=== PATIENT | female | born 1980 | race Caucasian/White ===

== ENCOUNTER 2020-11-25 13:54 | Emergency (ER) | payer OTHER ==
[~2020-11-25] VITALS: Ht 154.9 cm; Wt 72.6 kg
[2020-11-25 14:11] VITALS: BP 79/48
[2020-11-25] MEDS ORDERED: NACL 0.9% 1,000 ML IV SCH (14:25)
[2020-11-25] MEDS ORDERED: ONDANSETRON 4 MG/2 ML VIAL IVP ONE (14:25)
[2020-11-25 14:47] LABS: BASOPHILS # (AUTO) 0.1 K/uL (0.00-0.22); EOSINOPHILS # (AUTO) 0.1 K/uL (0-0.4); HEMATOCRIT 40.6 % (36-48); HEMOGLOBIN 13.6 g/dL (12.0-16.0); LYMPHOCYTES # (AUTO) 1.6 K/uL (2.5-16.5); LYMPHOCYTES % (AUTO) 31.3 % (20.5-51.1); MEAN CORPUSCULAR HEMOGLOBIN 30 pg (27-31); MEAN CORPUSCULAR HGB CONC 34 g/dL (33-37); MEAN CORPUSCULAR VOLUME 89.5 fL (80-94); MONOCYTES # (AUTO) 0.4 K/uL (0.8-1.0); MONOCYTES % (AUTO) 8.4 % (1.7-9.3); NEUTROPHILS # (AUTO) 2.8 K/uL (1.8-7.7); NEUTROPHILS % (AUTO) 57.3 % (42.2-75.2); PLATELET COUNT (AUTO) 267 K/uL (140-450); RED BLOOD CELL COUNT(AUTO) 4.54 MIL/uL (4.20-5.40); RED CELL DISTRIBUTION WIDTH 13.4 % (11.6-13.7)
[2020-11-25 15:14] LABS: ALBUMIN 4.1 g/dL (3.4-5.0); ANION GAP 13.6 (8-16); CARBON DIOXIDE 26.2 mmol/L (21-32); CREATININE 0.5 mg/dL (0.6-1.3); POTASSIUM 3.8 mmol/L (3.5-5.1); TOTAL BILIRUBIN 0.3 mg/dL (0.0-1.0)
[2020-11-25] MEDS ORDERED: SUCRALFATE 1 GM TAB PO SCH (15:25)
[2020-11-25] MEDS ORDERED: ALUMINUM HYD/MAG/SIMETHICONE 30 ML, DICYCLOMINE HCL LIQUID 20 MG, LIDOCAINE VISCOUS 2% ... PO ONE ×3 (15:25)
[2020-11-25] MEDS ORDERED: ALUMINUM HYD/MAG/SIMETHICONE 30 ML UDC ONE (15:38)
[2020-11-25] MEDS ORDERED: LIDOCAINE VISCOUS 2% 20 ML UDC ONE (15:38)
[2020-11-25] MEDS ORDERED: DICYCLOMINE HCL LIQUID 10 MG/5 ML UDC ONE (15:38)
[2020-11-25 16:08] LABS: APPEARANCE,URINE CLEAR (CLEAR); BILIRUBIN,URINE NEGATIVE (NEGATIVE); BLOOD, URINE NEGATIVE (NEGATIVE); COLOR,URINE YELLOW (YELLOW); LEUKOCYTE ESTERASE ,URINE NEGATIVE (NEGATIVE); NITRITE, URINE NEGATIVE (NEGATIVE); UGLUCOSE NEGATIVE (NEGATIVE)
[2020-11-25] MEDS ORDERED: FAMO-90 PO (17:11)
[2020-11-25] MEDS ORDERED: SUCR1TAB35 PO (17:11)
[2020-11-25] MEDS ORDERED: IMO2 PO (17:11)
[2020-11-25] MEDS ORDERED: ONDA-24 SL (17:11)
[2020-11-25 17:37] VITALS: BP 79/48
== END 2020-11-25 17:38 | disposition home or self-care (01) ==
LOC: MED 13:54
DX: K52.9 Noninfective gastroenteritis and colitis, unspecified (principal)
CPT/HCPCS: 36415; 74177; 76705; 80053; 81003; 81025; 82150; 83690; 85025; 96361; 96374; 99285; J2405; J7030; Q9967

== ENCOUNTER 2022-08-30 08:09 | Emergency (ER) | payer BC, OTHER ==
[~2022-08-30] VITALS: Ht 154.9 cm; Wt 71.3 kg
[~2022-08-30 08:09] MED LIST: FAMO-90 PO; IMO2 PO; ONDA-188 SL; SUCR1TAB35 PO
[2022-08-30 08:11] VITALS: BP 140/85
--- NOTE | 2022-08-30 08:19 | NUR ---
PT AMB TO BED 7.
[2022-08-30] MEDS ORDERED: MORPHINE SULFATE 4 MG/ML SYR IM ONE (08:30)
--- NOTE | 2022-08-30 08:30 | NUR ---
Dr. Rosa evaluating patient at bedside.
[2022-08-30] MEDS ORDERED: IBUP-2213 PO (08:35)
[2022-08-30] MEDS ORDERED: ACET-8905 PO (08:35)
--- NOTE | 2022-08-30 08:45 | NUR ---
42 y/o female bib self with abdominal pain that radiates down left leg x 2 weeks. Denies any fever, chills or dysuria. Patient states has been taking Ibuprofen 800mg with minimal relief. Patient states pain became more intense x 3 days ago. Denies any heavy lifting or injury. Medical History: Denies NKDA
--- NOTE | 2022-08-30 09:02 | NUR ---
Patient discharged with v/s stable. Written and verbal after care instructions given. Patient alert, oriented and verbalized understanding of instructions. Ambulatory with steady gait. All questions addressed prior to discharge. ID band removed. Patient advised to follow up with PMD. Rx of Ibuprofen Hydrocodone-Acetaminophen given. Opportunity to ask questions provided and answered.
--- NOTE | 2022-08-30 09:03 | NUR ---
The patient's care was reviewed and supervised by Reyna Toledo, RN, RN.
== END 2022-08-30 09:02 | disposition home or self-care (01) ==
LOC: MED 08:09
DX: M54.50 Low back pain, unspecified (principal); Z72.89 Other problems related to lifestyle
CPT/HCPCS: 81025; 96372; 99283; J2270